=== PATIENT | male | born 1980 | race Caucasian/White ===

== ENCOUNTER 2017-07-12 22:11 | Emergency (ER) | payer MEDICAID ==
[~2017-07-12] VITALS: Ht 188 cm; Wt 125.5 kg
[2017-07-12 23:02] LABS: MICROSCOPIC AUTO
[2017-07-12 23:06] LABS: CULTURE INDICATED? YES
[2017-07-12 23:09] LABS: BASOPHILS # (AUTO) 0.04 x10^3/uL (0-0.1); BASOPHILS % (AUTO) 0 % (0-1); EOSINOPHILS # (AUTO) 0.22 x10^3/uL (0-0.4); EOSINOPHILS % (AUTO) 2 % (1-7); LYMPHOCYTES # (AUTO) 2.55 x10^3/uL (1-3.4); LYMPHOCYTES % (AUTO) 19 % (22-44); MD NO; MEAN CORPUSCULAR HEMOGLOBIN 30.3 pg (27.5-34.5); MEAN CORPUSCULAR HGB CONC 34.2 g/dL (33.2-36.2); MEAN CORPUSCULAR VOLUME 88.8 fL (81-97); MEAN PLATELET VOLUME 10.2 fL (7.4-10.4); MONOCYTES # (AUTO) 1.05 x10^3/uL (0.2-0.8); MONOCYTES % (AUTO) 8 % (2-9); NEUTROPHILS # (AUTO) 9.42 x10^3/uL (1.8-6.8); NEUTROPHILS % (AUTO) 71 % (42-75); PLATELET COUNT 246 x10^3/uL (130-400); RED CELL DISTRIBUTION WIDTH 13.9 % (9.4-14.8)
[2017-07-12 23:14] VITALS: BP 142/86
[2017-07-12 23:19] LABS: ALANINE AMINOTRANSFERASE 37 U/L (12-78); ALBUMIN 3.6 g/dL (3.4-5.0); ANION GAP 8 mmol/L (5-15); CALCIUM 8.4 mg/dL (8.5-10.1); CHLORIDE 110 mmol/L (98-107); CREATININE 0.83 mg/dL (0.7-1.3)
[2017-07-12 23:21] LABS: ALKALINE PHOSPHATASE 91 U/L (45-117); BILIRUBIN,TOTAL 0.4 mg/dL (0.2-1.0); TOTAL PROTEIN 7.1 g/dL (6.4-8.2)
[2017-07-13] MEDS ORDERED: ONDANSETRON ODT 4 MG ONE (01:14)
[2017-07-13] MEDS ORDERED: OXYcodone/APAP 5/325MG TABLET ONE (01:14)
[2017-07-13] MEDS ORDERED: ONDANSETRON ODT 4 MG PO ONE (01:30)
[2017-07-13] MEDS ORDERED: OXYcodone/APAP 5/325MG TABLET PO ONE (01:30)
== END 2017-07-13 01:41 | disposition home or self-care (01) ==
LOC: ED 23:59
DX: R10.11 Right upper quadrant pain (principal)
CPT/HCPCS: 36415; 76700; 80053; 81001; 83690; 85025; 87077; 87086; 99285; Q0162